=== PATIENT | female | born 1940 | race Caucasian/White ===

== ENCOUNTER → 2017-05-13 | Outpatient (CLI) | payer MEDICARE, SELFPAY ==
[~2017-05-13] MED LIST: ALBU90OI61 INH; AMLO5 PO; ASPI81CH PO; ASPI81EC PO; ATOR10 PO; Acetaminophen-1 EAC1 PO; Amaryl1 MG PO; BUDE6HFA; Bactrim 400-801 EACH PO; Bisoprolol Fumar5 MG PO; CETI5 PO; CIPRO500 MG PO; CLIN150; Celexa10 MG PO; D-3 PO; DEXL60CA3 PO; EZET10-40 PO; FISH1000 PO; Flagyl500 MG PO; GEMF600 PO; HYDACE5 PO; HYDMOR3S PR; LEVFLO500 PO; LEVSOD100 PO; LOSARTAN POTAS100 MG PO; MECL12.5 PO; METF500 PO; METO2.5 PO; MONDOXYNE NL100 MG PO; NEBI5 PO; NITR.4SL SL; NYST237S MT; PROM25S PR; Percocet 5-3251 EACH PO; Pyridium200 MG PO; RANI150 PO; ROSU5 PO; RXPHEN200 PO; SIMV10 PO; SUCR1 PO; Synthroid25 MCG PO; TYLECOD3 PO; UBID100 PO; ULTRA-LIGHT RO1 EACH MC; VALS80 PO; Vibramycin100 MG PO; Zantac150 MG PO; Zofran4 MG PO
== END ==
LOC: LAB SHORT 08:44
DX: N39.0 Urinary tract infection, site not specified (principal)
CPT/HCPCS: 87077; 87086; 87186

== ENCOUNTER 2017-05-19 09:22 | Emergency (ER) | payer MEDICARE, SELFPAY ==
[~2017-05-19] VITALS: Ht 172.7 cm; Wt 76.7 kg
[~2017-05-19 09:22] MED LIST changes: -ASPI81CH PO; -ATOR10 PO; -Acetaminophen-1 EAC1 PO; -Bisoprolol Fumar5 MG PO; -CLIN150; -MECL12.5 PO; -MONDOXYNE NL100 MG PO; -NYST237S MT; -SUCR1 PO; -TYLECOD3 PO; -Vibramycin100 MG PO
[2017-05-19] MEDS ORDERED: ASPI81CH PO (09:44)
[2017-05-19] MEDS ORDERED: Bisoprolol Fumar5 MG PO (09:45)
[2017-05-19] MEDS ORDERED: CLIN150 (09:45)
[2017-05-19] MEDS ORDERED: NYST237S MT ×2 (10:17→10:20)
[2017-10-04] MEDS ORDERED: ATOR10 PO (09:09)
[2018-01-20] MEDS ORDERED: MONDOXYNE NL100 MG PO (13:55)
[2018-01-20] MEDS ORDERED: TYLECOD3 PO ×2 (15:32→16:37)
[2018-02-26] MEDS ORDERED: MECL12.5 PO (14:09)
[2018-02-26] MEDS ORDERED: SUCR1 PO (14:09)
== END 2017-05-19 10:23 | disposition home or self-care (01) ==
LOC: ER 09:22
DX: B37.0 Candidal stomatitis (principal); Z88.0 Allergy status to penicillin; Z88.1 Allergy status to other antibiotic agents; Z88.8 Allergy status to other drugs, medicaments and biological substances; Z79.899 Other long term (current) drug therapy; Z79.82 Long term (current) use of aspirin; Z79.2 Long term (current) use of antibiotics; I10 Essential (primary) hypertension; E03.9 Hypothyroidism, unspecified; E78.00 Pure hypercholesterolemia, unspecified
CPT/HCPCS: 99282

== ENCOUNTER → 2017-08-24 | Outpatient (CLI) | payer MEDICARE ==
[~2017-08-24] MED LIST changes: +ASPI81CH PO; +Bisoprolol Fumar5 MG PO; +CLIN150; +LEVSOD25 PO; +NYST237S MT; +RANI150; -Synthroid25 MCG PO; -Zantac150 MG PO
== END | disposition home or self-care (01) ==
LOC: LAB SHORT 14:18 → LAB EV 14:18
DX: N39.0 Urinary tract infection, site not specified (principal)
CPT/HCPCS: 87086

== ENCOUNTER 2017-10-04 06:09 | Day surgery (SDC) | payer MEDICARE, SELFPAY ==
[~2017-10-04] VITALS: Ht 198.1 cm; Wt 80.0 kg
[2017-10-04] MEDS ORDERED: ATOR20 PO (09:09)
== END 2017-10-04 12:30 | disposition home or self-care (01) ==
LOC: MHTC 06:09
PROC: 4A033BC Measurement of Arterial Pressure, Coronary, Percutaneous Approach (ICD-10-PCS; principal; 2017-10-04)
PROC: B2111ZZ Fluoroscopy of Multiple Coronary Arteries using Low Osmolar Contrast (ICD-10-PCS; principal; 2017-10-04)
DX: I25.119 Atherosclerotic heart disease of native coronary artery with unspecified angina pectoris (principal); E78.00 Pure hypercholesterolemia, unspecified; I10 Essential (primary) hypertension; E11.9 Type 2 diabetes mellitus without complications; I44.7 Left bundle-branch block, unspecified; K21.9 Gastro-esophageal reflux disease without esophagitis; M75.101 Unspecified rotator cuff tear or rupture of right shoulder, not specified as traumatic; Z88.0 Allergy status to penicillin; Z88.8 Allergy status to other drugs, medicaments and biological substances; Z88.5 Allergy status to narcotic agent; Z88.1 Allergy status to other antibiotic agents; Z79.82 Long term (current) use of aspirin; Z79.899 Other long term (current) drug therapy
CPT/HCPCS: 93454; 93571; 99152; 99153; C1769; C1894; J1644; J2250; J3010; J7030; Q9967

== ENCOUNTER 2017-10-08 22:31 | Emergency (ER) | payer MEDICARE, SELFPAY ==
[~2017-10-08] VITALS: Ht 172.7 cm; Wt 80.3 kg
[~2017-10-08 22:31] MED LIST changes: +ATOR20 PO
[2017-10-08] MEDS ORDERED: Acetaminophen-1 EAC1 PO (23:02)
[2017-10-09 00:26] LABS: BASOPHILS ABSOLUTE AUTO 0.02 K/mm3 (0.00-0.23); BASOPHILS PERCENT AUTO 0 % (0-2); EOSINOPHILS PERCENT AUTO 1 % (0-6); Hematocrit 36.8 % (33.0-51.0); IMMATURE GRAN ABSOLUTE AUTO 0.02 K/mm3 (0.00-0.10); IMMATURE GRAN PERCENT AUTO 0 % (0-1); LYMPHOCYTES ABSOLUTE AUTO 1.85 K/mm3 (0.84-5.20); LYMPHOCYTES PERCENT AUTO 27 % (21-46); MONOCYTES ABSOLUTE AUTO 0.73 K/mm3 (0.16-1.47); MONOCYTES PERCENT AUTO 11 % (4-13); Mean Corpuscular HGB Conc 32.6 g/dL (31.5-36.5); Mean Corpuscular Volume 86 fL (80-100); Mean Platelet Volume 10.2 fL (9.1-12.4); NEUTROPHILS PERCENT AUTO 61 % (41-73); Platelet Count 212 K/mm3 (150-400); RDW Coefficient Variation 14.2 % (11.7-14.2); RDW Standard Deviation 44.6 fL (35.1-46.3); Red Blood Cell Count 4.28 M/mm3 (3.80-5.20); White Blood Cell Count 6.92 K/mm3 (4.00-11.30)
[2017-10-09 00:40] LABS: Anion Gap 6 mmol/L (6-16); Blood Urea Nitrogen 15 mg/dL (8-24); Bun/Creatinine Ratio 19.9 (12.0-20.0); CO2, Blood 32 mmol/L (21-32); Calcium, Blood 9.6 mg/dL (8.5-10.1); Chloride, Blood 101 mmol/L (98-108); Creatinine, Blood 0.75 mg/dL (0.40-1.00); Glomerular Filtration Rate >60 (60-); Glucose, Blood 105 mg/dL (70-99); Potassium, Blood 4.2 mmol/L (3.5-5.5); Sodium, Blood 139 mmol/L (136-145)
[2017-10-09] MEDS ORDERED: Vibramycin100 MG PO (01:28)
== END 2017-10-09 02:10 | disposition home or self-care (01) ==
LOC: ER 22:31
PROVIDERS: Emergency Medicine
DX: T81.4XXA Infection following a procedure, initial encounter (principal); L03.113 Cellulitis of right upper limb; T81.72XA Complication of vein following a procedure, not elsewhere classified, initial encounter; I80.8 Phlebitis and thrombophlebitis of other sites; I10 Essential (primary) hypertension; E03.9 Hypothyroidism, unspecified; Z88.0 Allergy status to penicillin; Z88.1 Allergy status to other antibiotic agents; Z88.8 Allergy status to other drugs, medicaments and biological substances; Z88.5 Allergy status to narcotic agent; Z79.899 Other long term (current) drug therapy; Z79.82 Long term (current) use of aspirin
CPT/HCPCS: 36415; 80048; 85025; 93931; 99284

== ENCOUNTER 2018-01-11 04:34 | Emergency (ER) | payer MEDICARE, SELFPAY ==
[~2018-01-11] VITALS: Ht 167.6 cm; Wt 82.1 kg
[~2018-01-11 04:34] MED LIST changes: +ATOR10 PO; -ATOR20 PO; +Acetaminophen-1 EAC1 PO; -LEVSOD25 PO; -RANI150; +Synthroid25 MCG PO; +Vibramycin100 MG PO; +Zantac150 MG PO
[2018-01-11 05:46] LABS: BASOPHILS ABSOLUTE AUTO 0.02 K/mm3 (0.00-0.23); BASOPHILS PERCENT AUTO 0 % (0-2); EOSINOPHILS ABSOLUTE AUTO 0.07 K/mm3 (0.00-0.68); EOSINOPHILS PERCENT AUTO 1 % (0-6); Hematocrit 40.5 % (33.0-51.0); Hemoglobin 12.9 g/dL (11.5-16.0); IMMATURE GRAN ABSOLUTE AUTO 0.01 K/mm3 (0.00-0.10); IMMATURE GRAN PERCENT AUTO 0 % (0-1); LYMPHOCYTES ABSOLUTE AUTO 1.77 K/mm3 (0.84-5.20); LYMPHOCYTES PERCENT AUTO 28 % (21-46); MONOCYTES ABSOLUTE AUTO 0.49 K/mm3 (0.16-1.47); MONOCYTES PERCENT AUTO 8 % (4-13); Mean Corpuscular HGB 27.9 pg (26.0-34.0); Mean Corpuscular HGB Conc 31.9 g/dL (31.5-36.5); Mean Corpuscular Volume 88 fL (80-100); Mean Platelet Volume 10.1 fL (9.1-12.4); NEUTROPHILS PERCENT AUTO 63 % (41-73); Platelet Count 178 K/mm3 (150-400); RDW Coefficient Variation 13.4 % (11.7-14.2); RDW Standard Deviation 43.3 fL (35.1-46.3); Red Blood Cell Count 4.63 M/mm3 (3.80-5.20); White Blood Cell Count 6.36 K/mm3 (4.00-11.30)
[2018-01-11 06:05] LABS: Alanine Aminotransfer (ALT/SGP 24 U/L (12-78); Albumin, Blood 3.6 g/dL (3.4-5.0); Albumin/Globulin Ratio 0.9 (0.8-1.8); Alk Phos 110 U/L (50-136); Anion Gap 7 mmol/L (6-16); Aspartate Aminotrans (AST/SGOT 19 U/L (12-37); Bilirubin, Total 0.7 mg/dL (0.1-1.0); Blood Urea Nitrogen 20 mg/dL (8-24); Bun/Creatinine Ratio 25.9 (12.0-20.0); CO2, Blood 28 mmol/L (21-32); Calcium, Blood 8.9 mg/dL (8.5-10.1); Chloride, Blood 106 mmol/L (98-108); Creatinine, Blood 0.77 mg/dL (0.40-1.00); Globulin, Blood 4.1 g/dL (2.2-4.0); Glomerular Filtration Rate >60 (60-); Glucose, Blood 124 mg/dL (70-99); Sodium, Blood 141 mmol/L (136-145); Total Protein, Blood 7.7 g/dL (6.4-8.2); Troponin I <0.015 ng/mL (0.000-0.040)
[2018-01-11] MEDS ORDERED: TYLECOD3 PO (06:51)
== END 2018-01-11 06:55 | disposition home or self-care (01) ==
LOC: ER 04:34
PROVIDERS: Emergency Medicine
DX: S60.021A Contusion of right index finger without damage to nail, initial encounter (principal); E11.9 Type 2 diabetes mellitus without complications; E03.9 Hypothyroidism, unspecified; E78.00 Pure hypercholesterolemia, unspecified; I10 Essential (primary) hypertension; Z88.0 Allergy status to penicillin; Z88.1 Allergy status to other antibiotic agents; Z88.8 Allergy status to other drugs, medicaments and biological substances; Z88.5 Allergy status to narcotic agent; Z79.899 Other long term (current) drug therapy; Z79.82 Long term (current) use of aspirin; X58.XXXA Exposure to other specified factors, initial encounter
CPT/HCPCS: 36415; 80053; 84484; 85025; 93005; 93010; 93922; 96374; 96375; 99284-25; J1170; J2405

== ENCOUNTER 2018-01-11 19:00 | Emergency (ER) | payer MEDICARE, SELFPAY ==
[~2018-01-11] VITALS: Ht 167.6 cm; Wt 82.1 kg
[~2018-01-11 19:00] MED LIST changes: +TYLECOD3 PO
== END 2018-01-11 21:18 | disposition home or self-care (01) ==
LOC: ER 19:00
DX: S60.121A Contusion of right index finger with damage to nail, initial encounter (principal); I10 Essential (primary) hypertension; E03.9 Hypothyroidism, unspecified; Z88.0 Allergy status to penicillin; Z88.1 Allergy status to other antibiotic agents; Z88.8 Allergy status to other drugs, medicaments and biological substances; Z88.5 Allergy status to narcotic agent; Z79.899 Other long term (current) drug therapy; Z79.82 Long term (current) use of aspirin; X58.XXXA Exposure to other specified factors, initial encounter
CPT/HCPCS: 11740; 73140; 99283-25

== ENCOUNTER 2018-01-15 11:36 | Emergency (ER) | payer MEDICARE, SELFPAY ==
[~2018-01-15] VITALS: Ht 167.6 cm; Wt 83.5 kg
== END 2018-01-15 11:58 | disposition home or self-care (01) ==
LOC: ER 11:36
DX: L53.9 Erythematous condition, unspecified (principal); E11.9 Type 2 diabetes mellitus without complications; E03.9 Hypothyroidism, unspecified; E78.00 Pure hypercholesterolemia, unspecified; I10 Essential (primary) hypertension; Z88.0 Allergy status to penicillin; Z88.1 Allergy status to other antibiotic agents; Z88.8 Allergy status to other drugs, medicaments and biological substances; Z79.899 Other long term (current) drug therapy; Z79.82 Long term (current) use of aspirin
CPT/HCPCS: 99282

== ENCOUNTER → 2018-04-26 | Outpatient (CLI) | payer MEDICARE ==
[~2018-04-26] MED LIST changes: +MECL12.5 PO; +MONDOXYNE NL100 MG PO; +SUCR1 PO
[2018-04-26 14:58] LABS: Source, Urine Clean Catch
[2018-04-26 15:06] LABS: Appearance, Urine Clear (Clear); Bilirubin, Urine Neg (Neg); Blood, Urine Neg (Neg); Color, Urine Yellow (P-Yellow); Glucose Qualitative, Urine Neg (Normal); Ketones, Urine Neg (Neg); Leukocyte Esterase, Urine 2+ (Neg); Nitrite, Urine Neg (Neg); Protein, Urine Neg (Neg); Urobilinogen, Urine NORM (Normal)
[2018-04-26 15:18] LABS: Bacteria Not Seen /hpf; Red Blood Cells, Urine Not Seen /hpf (0-2); Squamous Epithelial Cells Not Seen /hpf (Few)
== END | disposition home or self-care (01) ==
LOC: LAB EV 14:55 → LAB SHORT 14:55
PROVIDERS: Nurse Practitioner
DX: N39.0 Urinary tract infection, site not specified (principal)
CPT/HCPCS: 81001; 87077; 87086; 87186

== ENCOUNTER → 2018-05-05 | Outpatient (CLI) | payer MEDICARE ==
[2018-05-05 08:19] LABS: Bacteria Mod /hpf; Red Blood Cells, Urine TNTC /hpf (0-2); Squamous Epithelial Cells Few /hpf (Few); White Blood Cells, Urine 50-100 /hpf (0-5)
== END ==
LOC: LAB SHORT 07:51 → LAB EV 07:51
PROVIDERS: General Practice
DX: N39.0 Urinary tract infection, site not specified (principal)
CPT/HCPCS: 81015; 87086

== ENCOUNTER 2018-06-30 18:41 | Emergency (ER) | payer MEDICARE, OTHER ==
[~2018-06-30] VITALS: Ht 160 cm; Wt 88.5 kg
[2018-06-30 19:10] LABS: BASOPHILS ABSOLUTE AUTO 0.02 K/mm3 (0.00-0.23); BASOPHILS PERCENT AUTO 0 % (0-2); EOSINOPHILS ABSOLUTE AUTO 0.06 K/mm3 (0.00-0.68); EOSINOPHILS PERCENT AUTO 1 % (0-6); Hematocrit 37.3 % (33.0-51.0); IMMATURE GRAN ABSOLUTE AUTO 0.01 K/mm3 (0.00-0.10); IMMATURE GRAN PERCENT AUTO 0 % (0-1); LYMPHOCYTES ABSOLUTE AUTO 2.45 K/mm3 (0.84-5.20); LYMPHOCYTES PERCENT AUTO 41 % (21-46); MONOCYTES ABSOLUTE AUTO 0.53 K/mm3 (0.16-1.47); MONOCYTES PERCENT AUTO 9 % (4-13); Mean Corpuscular HGB 27.1 pg (26.0-34.0); Mean Corpuscular HGB Conc 32.2 g/dL (31.5-36.5); Mean Corpuscular Volume 84 fL (80-100); Mean Platelet Volume 10.7 fL (9.1-12.4); NEUTROPHILS ABSOLUTE AUTO 2.86 K/mm3 (1.96-9.15); NEUTROPHILS PERCENT AUTO 48 % (41-73); Platelet Count 217 K/mm3 (150-400); RDW Coefficient Variation 14.4 % (11.7-14.2); RDW Standard Deviation 44.2 fL (35.1-46.3); Red Blood Cell Count 4.43 M/mm3 (3.80-5.20); White Blood Cell Count 5.93 K/mm3 (4.00-11.30)
[2018-06-30] MEDS ORDERED: ATOR20 PO ×2 (19:40)
[2018-06-30] MEDS ORDERED: Synthroid25 MCG PO (19:41)
[2018-06-30] MEDS ORDERED: NITR.4SL SL (19:43)
[2018-06-30] MEDS ORDERED: CLOP75 PO (19:43)
[2018-06-30] MEDS ORDERED: LOSA25 PO (19:44)
[2018-06-30] MEDS ORDERED: Zantac150 MG PO (19:45)
[2018-06-30] MEDS ORDERED: OMEPRAZOLE MAGN20 MG PO (19:46)
[2018-06-30] MEDS ORDERED: [UNRECOGNIZED DRUG - OTHER] (19:48)
[2018-06-30 19:58] LABS: Troponin I <0.015 ng/mL (0.000-0.040)
[2018-06-30 19:59] LABS: Alanine Aminotransfer (ALT/SGP 22 U/L (12-78); Albumin, Blood 3.6 g/dL (3.4-5.0); Albumin/Globulin Ratio 0.9 (0.8-1.8); Alk Phos 114 U/L (50-136); Anion Gap 9 mmol/L (6-16); Aspartate Aminotrans (AST/SGOT 19 U/L (12-37); Bilirubin, Total 0.2 mg/dL (0.1-1.0); Blood Urea Nitrogen 24 mg/dL (8-24); Bun/Creatinine Ratio 31.9 (12.0-20.0); CO2, Blood 24 mmol/L (21-32); Calcium, Blood 9.1 mg/dL (8.5-10.1); Chloride, Blood 104 mmol/L (98-108); Creatinine, Blood 0.75 mg/dL (0.40-1.00); Globulin, Blood 3.9 g/dL (2.2-4.0); Glomerular Filtration Rate >60 (60-); Glucose, Blood 238 mg/dL (70-99); Potassium, Blood 3.7 mmol/L (3.5-5.5); Sodium, Blood 137 mmol/L (136-145); Total Protein, Blood 7.5 g/dL (6.4-8.2)
[2018-06-30] MEDS ORDERED: Ativan0.5 MG SL (20:34)
== END 2018-06-30 20:50 | disposition home or self-care (01) ==
LOC: ER 18:41
PROVIDERS: Physician Assistant
DX: I35.0 Nonrheumatic aortic (valve) stenosis (principal); I42.8 Other cardiomyopathies; F43.9 Reaction to severe stress, unspecified; Z88.0 Allergy status to penicillin; Z88.1 Allergy status to other antibiotic agents; Z88.8 Allergy status to other drugs, medicaments and biological substances; Z79.899 Other long term (current) drug therapy; Z79.82 Long term (current) use of aspirin; E11.9 Type 2 diabetes mellitus without complications; E03.9 Hypothyroidism, unspecified; I10 Essential (primary) hypertension
CPT/HCPCS: 36415; 71046; 80053; 83880; 84484; 85025; 93005; 93010; 99285-25

== ENCOUNTER → 2018-12-04 | Outpatient (CLI) | payer MEDICARE, OTHER ==
[~2018-12-04] MED LIST changes: +ATOR20 PO; +Ativan0.5 MG SL; +CLOP75 PO; +LOSA25 PO; +OMEPRAZOLE MAGN20 MG PO; +[UNRECOGNIZED DRUG - OTHER]
[2018-12-04 09:39] LABS: Source, Urine Clean Catch
[2018-12-04 10:27] LABS: Appearance, Urine Clear (Clear); Bacteria Few /hpf; Bilirubin, Urine 1+ (Neg); Blood, Urine 1+ (Neg); Color, Urine Yellow (P-Yellow); Glucose Qualitative, Urine Neg (Normal); Ketones, Urine Neg (Neg); Leukocyte Esterase, Urine Neg (Neg); Nitrite, Urine Pos (Neg); Protein, Urine 1+ (Neg); Red Blood Cells, Urine 0-2 /hpf (0-2); Squamous Epithelial Cells Rare /hpf (Few); Urobilinogen, Urine 1+ (Normal); White Blood Cells, Urine 0-2 /hpf (0-5)
== END | disposition home or self-care (01) ==
LOC: LAB EV 09:32
PROVIDERS: Nurse Practitioner
DX: R35.0 Frequency of micturition (principal)
CPT/HCPCS: 81001; 87086

== ENCOUNTER 2019-05-25 02:53 | Emergency (ER) | payer MEDICARE ==
[~2019-05-25] VITALS: Ht 167.6 cm; Wt 80.7 kg
[2019-05-25 03:40] LABS: Source, Urine Voided
[2019-05-25 03:42] LABS: Bilirubin, Urine Neg (Neg); Blood, Urine 3+ (Neg); Glucose Qualitative, Urine Neg (Neg); Ketones, Urine Neg (Neg); Leukocyte Esterase, Urine 3+ (Neg); Nitrite, Urine Pos (Neg); Protein, Urine 2+ (Neg); Specific Gravity, Urine 1.015 (1.003-1.022); Urobilinogen, Urine NORM (Normal)
[2019-05-25 03:43] LABS: Appearance, Urine Hazy (Clear); Color, Urine Yellow (P-Yellow)
[2019-05-25 03:50] LABS: Bacteria Few /hpf; Red Blood Cells, Urine 0-2 /hpf (0-2); Squamous Epithelial Cells Rare /hpf (Few); White Blood Cells, Urine TNTC /hpf (0-5)
[2019-05-25] MEDS ORDERED: Bactrim Ds Tab1 EACH PO (04:05)
== END 2019-05-25 04:16 | disposition home or self-care (01) ==
LOC: ER 02:53
PROVIDERS: Emergency Medicine
DX: N39.0 Urinary tract infection, site not specified (principal); I10 Essential (primary) hypertension; E11.9 Type 2 diabetes mellitus without complications; E03.9 Hypothyroidism, unspecified; E78.00 Pure hypercholesterolemia, unspecified; Z88.0 Allergy status to penicillin; Z88.1 Allergy status to other antibiotic agents; Z88.8 Allergy status to other drugs, medicaments and biological substances; Z88.5 Allergy status to narcotic agent; Z79.899 Other long term (current) drug therapy; Z79.82 Long term (current) use of aspirin; Z79.01 Long term (current) use of anticoagulants
CPT/HCPCS: 81001; 87077; 87086; 87186; 99283; A9270-GY

== ENCOUNTER 2019-09-07 13:42 | Emergency (ER) | payer MEDICARE ==
[~2019-09-07] VITALS: Ht 167.6 cm; Wt 83.9 kg
[~2019-09-07 13:42] MED LIST changes: +Bactrim Ds Tab1 EACH PO
[2019-09-07 14:18] LABS: Source, Urine Clean Catch
[2019-09-07 14:23] LABS: Bilirubin, Urine Neg (Neg); Blood, Urine 5+ (Neg); Glucose Qualitative, Urine Neg (Neg); Ketones, Urine Neg (Neg); Leukocyte Esterase, Urine 3+ (Neg); Nitrite, Urine Neg (Neg); Protein, Urine 3+ (Neg); Urobilinogen, Urine NORM (Normal)
[2019-09-07 14:32] LABS: Appearance, Urine Cloudy (Clear); Color, Urine Yellow (P-Yellow)
[2019-09-07 14:33] LABS: Bacteria Few /hpf; Red Blood Cells, Urine TNTC /hpf (0-2); Squamous Epithelial Cells Few /hpf (Few); White Blood Cells, Urine TNTC /hpf (0-5)
[2019-09-07] MEDS ORDERED: NYST100000 PO (15:18)
[2019-09-07] MEDS ORDERED: SULTRIDS PO (15:18)
[2019-09-07] MEDS ORDERED: PHENA200 PO (15:18)
== END 2019-09-07 15:32 | disposition home or self-care (01) ==
LOC: ER 13:42
PROVIDERS: Emergency Medicine
DX: N39.0 Urinary tract infection, site not specified (principal); Z88.0 Allergy status to penicillin; Z88.1 Allergy status to other antibiotic agents; Z88.5 Allergy status to narcotic agent; Z88.8 Allergy status to other drugs, medicaments and biological substances; Z79.82 Long term (current) use of aspirin; Z79.899 Other long term (current) drug therapy
CPT/HCPCS: 81001; 87077; 87086; 87186; 99283; A9270-GY

== ENCOUNTER 2020-02-18 08:00 | Emergency (ER) | payer MEDICARE, OTHER ==
[~2020-02-18] VITALS: Ht 170.2 cm; Wt 89.8 kg
[~2020-02-18 08:00] MED LIST changes: +NYST100000 PO; +NYSTATIN100000 UN2 PO; +PHENA200 PO; +SULTRIDS PO
== END 2020-02-18 10:17 | disposition home or self-care (01) ==
LOC: ER 08:00
DX: J30.9 Allergic rhinitis, unspecified (principal); I10 Essential (primary) hypertension; E11.9 Type 2 diabetes mellitus without complications; E03.9 Hypothyroidism, unspecified; E78.00 Pure hypercholesterolemia, unspecified; Z79.02 Long term (current) use of antithrombotics/antiplatelets; Z79.82 Long term (current) use of aspirin; Z79.899 Other long term (current) drug therapy
CPT/HCPCS: 71046; 99283-25

== ENCOUNTER → 2020-03-11 | Outpatient (CLI) | payer MEDICARE ==
[~2020-03-11] MED LIST changes: +BISOPROLOL-HCT1 EAC2 PO; +Cipro500 MG PO; +ESTRADIOL42.5 GM UD; +GABA300 PO; -LOSA25 PO; +LOSA50 PO
== END | disposition home or self-care (01) ==
LOC: LAB SHORT 14:29 → LAB EV 14:29
DX: N39.0 Urinary tract infection, site not specified (principal)
CPT/HCPCS: 87077; 87086; 87186

== ENCOUNTER 2020-04-11 21:22 | Emergency (ER) | payer MEDICARE, SELFPAY ==
[~2020-04-11] VITALS: Ht 167.6 cm; Wt 88.0 kg
[~2020-04-11 21:22] MED LIST changes: -BISOPROLOL-HCT1 EAC2 PO; -Cipro500 MG PO; -ESTRADIOL42.5 GM UD; -GABA300 PO
[2020-04-11] MEDS ORDERED: LOSA50 PO (21:32)
[2020-04-11] MEDS ORDERED: BISOPROLOL-HCT1 EAC2 PO (21:34)
[2020-04-11] MEDS ORDERED: GABA300 PO (21:35)
[2020-04-11] MEDS ORDERED: ESTRADIOL42.5 GM UD (21:35)
[2020-04-11 22:05] LABS: Source, Urine Clean Catch
[2020-04-11 22:09] LABS: BASOPHILS ABSOLUTE AUTO 0.03 K/mm3 (0.00-0.23); BASOPHILS PERCENT AUTO 0 % (0-2); EOSINOPHILS ABSOLUTE AUTO 0.02 K/mm3 (0.00-0.68); EOSINOPHILS PERCENT AUTO 0 % (0-6); Hematocrit 40.3 % (33.0-51.0); Hemoglobin 12.9 g/dL (11.5-16.0); IMMATURE GRAN ABSOLUTE AUTO 0.03 K/mm3 (0.00-0.10); IMMATURE GRAN PERCENT AUTO 0 % (0-1); LYMPHOCYTES ABSOLUTE AUTO 1.95 K/mm3 (0.84-5.20); LYMPHOCYTES PERCENT AUTO 25 % (21-46); MONOCYTES ABSOLUTE AUTO 0.55 K/mm3 (0.16-1.47); MONOCYTES PERCENT AUTO 7 % (4-13); Mean Corpuscular HGB 27.9 pg (26.0-34.0); Mean Corpuscular Volume 87 fL (80-100); Mean Platelet Volume 10.3 fL (9.1-12.4); NEUTROPHILS ABSOLUTE AUTO 5.16 K/mm3 (1.96-9.15); NEUTROPHILS PERCENT AUTO 67 % (41-73); Platelet Count 190 K/mm3 (150-400); RDW Coefficient Variation 14.3 % (11.7-14.2); RDW Standard Deviation 45.2 fL (35.1-46.3); Red Blood Cell Count 4.63 M/mm3 (3.80-5.20); White Blood Cell Count 7.74 K/mm3 (4.00-11.30)
[2020-04-11 22:12] LABS: Bilirubin, Urine Neg (Neg); Blood, Urine 1+ (Neg); Glucose Qualitative, Urine 3+ (Neg); Ketones, Urine Neg (Neg); Leukocyte Esterase, Urine 3+ (Neg); Nitrite, Urine Neg (Neg); Protein, Urine 2+ (Neg); Urobilinogen, Urine NORM (Normal)
[2020-04-11 22:14] LABS: Appearance, Urine Clear (Clear); Color, Urine Yellow (P-Yellow)
[2020-04-11 22:18] LABS: Red Blood Cells, Urine 0-2 /hpf (0-2); Squamous Epithelial Cells Few /hpf (Few); White Blood Cells, Urine 25-50 /hpf (0-5)
[2020-04-11 22:19] LABS: Bacteria Mod /hpf
[2020-04-11 22:21] LABS: Alanine Aminotransfer (ALT/SGP 45 U/L (12-78); Albumin, Blood 3.6 g/dL (3.4-5.0); Albumin/Globulin Ratio 0.9 (0.8-1.8); Alk Phos 108 U/L (50-136); Anion Gap 5 mmol/L (6-16); Aspartate Aminotrans (AST/SGOT 36 U/L (12-37); Bilirubin, Total 0.2 mg/dL (0.1-1.0); Blood Urea Nitrogen 28 mg/dL (8-24); Bun/Creatinine Ratio 30.3 (12.0-20.0); CO2, Blood 27 mmol/L (21-32); Calcium, Blood 9.5 mg/dL (8.5-10.1); Chloride, Blood 107 mmol/L (98-108); Creatinine, Blood 0.92 mg/dL (0.40-1.00); Globulin, Blood 3.9 g/dL (2.2-4.0); Glomerular Filtration Rate >60 (60-); Glucose, Blood 256 mg/dL (70-99); Potassium, Blood 4.2 mmol/L (3.5-5.5); Sodium, Blood 139 mmol/L (136-145); Total Protein, Blood 7.5 g/dL (6.4-8.2)
[2020-04-12] MEDS ORDERED: Cipro500 MG PO (00:59)
== END 2020-04-12 01:00 | disposition home or self-care (01) ==
LOC: ER 21:22
PROVIDERS: Emergency Medicine
DX: N39.0 Urinary tract infection, site not specified (principal); E11.9 Type 2 diabetes mellitus without complications; E03.9 Hypothyroidism, unspecified; E78.00 Pure hypercholesterolemia, unspecified; I10 Essential (primary) hypertension; I25.10 Atherosclerotic heart disease of native coronary artery without angina pectoris; I25.2 Old myocardial infarction; Z79.82 Long term (current) use of aspirin; Z79.899 Other long term (current) drug therapy
CPT/HCPCS: 74176; 80053; 81001; 85025; 87077; 87086; 87186; 96374; 96375; 99284-25; J1170; J2405

== ENCOUNTER 2020-07-05 07:53 | Emergency (ER) | payer MEDICARE, SELFPAY ==
[~2020-07-05] VITALS: Ht 165.1 cm; Wt 89.8 kg
[~2020-07-05 07:53] MED LIST changes: +BISOPROLOL-HCT1 EAC2 PO; +Cipro500 MG PO; +ESTRADIOL42.5 GM UD; +GABA300 PO
[2020-07-05] MEDS ORDERED: HIPREX1 G1 PO (08:11)
[2020-07-05] MEDS ORDERED: CIPR500 PO (08:36)
[2020-07-05] MEDS ORDERED: PHENA200 PO (08:36)
[2020-07-05 08:43] LABS: Source, Urine Clean Catch
[2020-07-05 08:51] LABS: Bilirubin, Urine Neg (Neg); Blood, Urine 5+ (Neg); Glucose Qualitative, Urine Neg (Neg); Ketones, Urine Neg (Neg); Leukocyte Esterase, Urine 3+ (Neg); Nitrite, Urine Pos (Neg); Protein, Urine 3+ (Neg); Urobilinogen, Urine NORM (Normal); pH, Urine 6.5 (5.0-8.0)
[2020-07-05 09:16] LABS: Appearance, Urine Cloudy (Clear); Color, Urine Yellow (P-Yellow)
[2020-07-05 09:18] LABS: Bacteria Many /hpf; Red Blood Cells, Urine 25-50 /hpf (0-2); White Blood Cells, Urine TNTC /hpf (0-5)
[2020-07-05 09:19] LABS: Squamous Epithelial Cells Many /hpf (Few)
== END 2020-07-05 08:43 | disposition home or self-care (01) ==
LOC: ER 07:53
PROVIDERS: Emergency Medicine
DX: N39.0 Urinary tract infection, site not specified (principal); Z79.82 Long term (current) use of aspirin; Z79.02 Long term (current) use of antithrombotics/antiplatelets; Z79.899 Other long term (current) drug therapy
CPT/HCPCS: 81001; 87077; 87086; 87186; 99283; A9270

== ENCOUNTER 2021-02-17 07:13 | Day surgery (SDC) | payer MEDICARE ==
[~2021-02-17] VITALS: Ht 167.6 cm; Wt 80.8 kg
[~2021-02-17 07:13] MED LIST changes: +CIPR500 PO; +HIPREX1 G1 PO
== END 2021-02-17 09:30 | disposition home or self-care (01) ==
LOC: ORSCSDS 07:13 → ORD 08:30 → ORSCSDS 09:30
PROVIDERS: Surgery
PROC: 0DBM8ZX Excision of Descending Colon, Via Natural or Artificial Opening Endoscopic, Diagnostic (ICD-10-PCS; principal; 2021-02-17 08:30)
DX: Z12.11 Encounter for screening for malignant neoplasm of colon (principal); Z86.010 Personal history of colon polyps; D12.4 Benign neoplasm of descending colon; E11.9 Type 2 diabetes mellitus without complications; K21.9 Gastro-esophageal reflux disease without esophagitis; I10 Essential (primary) hypertension; E78.5 Hyperlipidemia, unspecified; I25.2 Old myocardial infarction; E03.9 Hypothyroidism, unspecified; Z79.82 Long term (current) use of aspirin; Z79.899 Other long term (current) drug therapy
CPT/HCPCS: 82947; 88305; J2704; J7120

== ENCOUNTER → 2021-05-27 | Outpatient (CLI) | payer MEDICARE ==
[2021-05-27 09:23] LABS: Alanine Aminotransfer (ALT/SGP 42 U/L (12-78); Albumin, Blood 3.8 g/dL (3.4-5.0); Alk Phos 124 U/L (50-136); Anion Gap 7 mmol/L (6-16); Aspartate Aminotrans (AST/SGOT 24 U/L (12-37); Bilirubin, Total 0.3 mg/dL (0.1-1.0); Blood Urea Nitrogen 19 mg/dL (8-24); Bun/Creatinine Ratio 24.3 (12.0-20.0); CO2, Blood 27 mmol/L (21-32); Calcium, Blood 9.5 mg/dL (8.5-10.1); Chloride, Blood 102 mmol/L (98-108); Creatinine, Blood 0.78 mg/dL (0.40-1.00); Globulin, Blood 3.7 g/dL (2.2-4.0); Glomerular Filtration Rate >60 (60-); Glucose, Blood 168 mg/dL (70-99); Potassium, Blood 4.2 mmol/L (3.5-5.5); Sodium, Blood 136 mmol/L (136-145); Total Protein, Blood 7.5 g/dL (6.4-8.2); Uric Acid, Blood 5.1 mg/dL (2.6-6.0)
[2021-05-27 09:39] LABS: BASOPHILS ABSOLUTE AUTO 0.02 K/mm3 (0.00-0.23); BASOPHILS PERCENT AUTO 0 % (0-2); EOSINOPHILS ABSOLUTE AUTO 0.05 K/mm3 (0.00-0.68); EOSINOPHILS PERCENT AUTO 1 % (0-6); Hemoglobin 13.7 g/dL (11.5-16.0); IMMATURE GRAN ABSOLUTE AUTO 0.02 K/mm3 (0.00-0.10); IMMATURE GRAN PERCENT AUTO 0 % (0-1); LYMPHOCYTES ABSOLUTE AUTO 1.66 K/mm3 (0.84-5.20); LYMPHOCYTES PERCENT AUTO 28 % (21-46); MONOCYTES ABSOLUTE AUTO 0.37 K/mm3 (0.16-1.47); MONOCYTES PERCENT AUTO 6 % (4-13); Mean Corpuscular HGB 27.2 pg (26.0-34.0); Mean Corpuscular HGB Conc 32.6 g/dL (31.5-36.5); Mean Corpuscular Volume 83 fL (80-100); Mean Platelet Volume 10.6 fL (9.1-12.4); NEUTROPHILS ABSOLUTE AUTO 3.85 K/mm3 (1.96-9.15); NEUTROPHILS PERCENT AUTO 65 % (41-73); Platelet Count 203 K/mm3 (150-400); RDW Coefficient Variation 15.7 % (11.7-14.2); RDW Standard Deviation 47.7 fL (35.1-46.3); Red Blood Cell Count 5.04 M/mm3 (3.80-5.20); White Blood Cell Count 5.97 K/mm3 (4.00-11.30)
== END | disposition home or self-care (01) ==
LOC: LAB SHORT 09:01
PROVIDERS: Nurse Practitioner Family
DX: S63.649A Sprain of metacarpophalangeal joint of unspecified thumb, initial encounter (principal); M13.841 Other specified arthritis, right hand
CPT/HCPCS: 80053; 84550; 85025; 85651; 86140

== ENCOUNTER 2021-08-21 06:51 | Day surgery (SDC) | payer MEDICARE ==
[~2021-08-21] VITALS: Ht 167.6 cm; Wt 82.9 kg
== END 2021-08-21 09:09 | disposition home or self-care (01) ==
LOC: ORSCSDS 06:51
PROVIDERS: Internal Medicine Gastroenterology
PROC: 0DB68ZX Excision of Stomach, Via Natural or Artificial Opening Endoscopic, Diagnostic (ICD-10-PCS; principal; 2021-08-21 08:00)
DX: R10.13 Epigastric pain (principal); K31.7 Polyp of stomach and duodenum; K44.9 Diaphragmatic hernia without obstruction or gangrene; K21.9 Gastro-esophageal reflux disease without esophagitis; E11.9 Type 2 diabetes mellitus without complications; E03.9 Hypothyroidism, unspecified; I10 Essential (primary) hypertension; I25.10 Atherosclerotic heart disease of native coronary artery without angina pectoris; Z79.01 Long term (current) use of anticoagulants; Z79.82 Long term (current) use of aspirin; Z79.84 Long term (current) use of oral hypoglycemic drugs
CPT/HCPCS: 88305; 88342; J2704; J7120

== ENCOUNTER 2021-12-19 13:10 | Inpatient (IN) | payer OTHER, MEDICARE ==
[~2021-12-19] VITALS: Ht 170.2 cm; Wt 78.1 kg
[2021-12-19] MEDS ORDERED: BISOPROLOL-HCT1 EACH PO (14:02)
[2021-12-19] MEDS ORDERED: CLOP75 PO (14:02)
[2021-12-19] MEDS ORDERED: LEVSOD25 PO (14:03)
[2021-12-19] MEDS ORDERED: METF500 PO (14:03)
[2021-12-19] MEDS ORDERED: OZEMPIC0.25 MG/0. SQ (14:04)
[2021-12-19 16:10] LABS: BASOPHILS ABSOLUTE AUTO 0.01 K/mm3 (0.00-0.23); BASOPHILS PERCENT AUTO 0 % (0-2); EOSINOPHILS ABSOLUTE AUTO 0.01 K/mm3 (0.00-0.68); EOSINOPHILS PERCENT AUTO 0 % (0-6); Hematocrit 37.4 % (33.0-51.0); Hemoglobin 12.7 g/dL (11.5-16.0); IMMATURE GRAN ABSOLUTE AUTO 0.04 K/mm3 (0.00-0.10); IMMATURE GRAN PERCENT AUTO 0 % (0-1); LYMPHOCYTES ABSOLUTE AUTO 1.37 K/mm3 (0.84-5.20); LYMPHOCYTES PERCENT AUTO 12 % (21-46); MONOCYTES ABSOLUTE AUTO 0.55 K/mm3 (0.16-1.47); MONOCYTES PERCENT AUTO 5 % (4-13); Mean Corpuscular HGB 28.8 pg (26.0-34.0); Mean Corpuscular Volume 85 fL (80-100); Mean Platelet Volume 9.7 fL (9.1-12.4); NEUTROPHILS ABSOLUTE AUTO 9.59 K/mm3 (1.96-9.15); NEUTROPHILS PERCENT AUTO 83 % (41-73); Platelet Count 205 K/mm3 (150-400); RDW Coefficient Variation 13.6 % (11.7-14.2); RDW Standard Deviation 42.5 fL (35.1-46.3); Red Blood Cell Count 4.41 M/mm3 (3.80-5.20); White Blood Cell Count 11.57 K/mm3 (4.00-11.30)
[2021-12-19 16:28] LABS: Albumin, Blood 3.7 g/dL (3.4-5.0); Albumin/Globulin Ratio 1.2 (0.8-1.8); Bilirubin, Total 0.6 mg/dL (0.1-1.0); Bun/Creatinine Ratio 19.7 (12.0-20.0); Calcium, Blood 9.6 mg/dL (8.5-10.1); Creatinine, Blood 0.76 mg/dL (0.40-1.00); Globulin, Blood 3.1 g/dL (2.2-4.0); Potassium, Blood 3.4 mmol/L (3.5-5.5); Total Protein, Blood 6.8 g/dL (6.4-8.2)
[2021-12-19 18:54] LABS: International Normalized Ratio 0.99; Prothrombin Time Results 10.4 Sec (9.7-11.5)
[2021-12-20 01:39] LABS: Influenza A, PCR NEGATIVE (NEGATIVE); Influenza B, PCR NEGATIVE (NEGATIVE); Resp Syncytial Virus, PCR NEGATIVE (NEGATIVE); SARS-Cov-2 (COVID-19) PCR, MMC NEGATIVE (NEGATIVE)
--- NOTE | 2021-12-20 03:28 | NUR ---
SHIFT SUMMARY PT ADMITTED FOR L HIP FX. CAME IN VIA GURNEY FROM ED SLIDE TO HOSPITAL BED. PT REPORTS SEVERE PAIN WITH MOVEMENT. INSERTED MONGE CATH, TOLERATED IT WELL. PT ON IV NS FLUIDS INFUSING WITH TELEPHONE MESSENGER - FENTANYL (ON DEMAND). PT REPORTS PAIN LEVEL 7-8/10. VSS. 2L NC DUE TO NARCOTICS. SATS ON 91-94%. PT O2 SAT AT 87% ON ROOM AIR INTERMITTENTLY. ROOM AIR ON BASELINE. CBG AC/HS LAST NIGHT. NPO TODAY FOR SURGERY. Q6 CBG. NO COVERAGE NEEDED OVERNIGHT. SURGICAL PREP DONE. AOX4. BEDREST. CALL LIGHT WITHIN REACH. WILL CONTINUE TO MONITOR PT OVERNIGHT. AND WILL PROVIDE REPORT TO ONCOMING NURSE.
[2021-12-20 06:06] LABS: BASOPHILS ABSOLUTE AUTO 0.02 K/mm3 (0.00-0.23); BASOPHILS PERCENT AUTO 0 % (0-2); EOSINOPHILS ABSOLUTE AUTO 0.08 K/mm3 (0.00-0.68); EOSINOPHILS PERCENT AUTO 1 % (0-6); Hematocrit 35.1 % (33.0-51.0); Hemoglobin 11.9 g/dL (11.5-16.0); IMMATURE GRAN ABSOLUTE AUTO 0.02 K/mm3 (0.00-0.10); IMMATURE GRAN PERCENT AUTO 0 % (0-1); LYMPHOCYTES ABSOLUTE AUTO 1.21 K/mm3 (0.84-5.20); LYMPHOCYTES PERCENT AUTO 16 % (21-46); MONOCYTES ABSOLUTE AUTO 0.46 K/mm3 (0.16-1.47); MONOCYTES PERCENT AUTO 6 % (4-13); Mean Corpuscular HGB 29.2 pg (26.0-34.0); Mean Corpuscular HGB Conc 33.9 g/dL (31.5-36.5); Mean Corpuscular Volume 86 fL (80-100); Mean Platelet Volume 9.8 fL (9.1-12.4); NEUTROPHILS PERCENT AUTO 76 % (41-73); Platelet Count 183 K/mm3 (150-400); RDW Coefficient Variation 13.8 % (11.7-14.2); RDW Standard Deviation 43.8 fL (35.1-46.3); Red Blood Cell Count 4.08 M/mm3 (3.80-5.20); White Blood Cell Count 7.39 K/mm3 (4.00-11.30)
[2021-12-20 06:22] LABS: International Normalized Ratio 1.04; Prothrombin Time Results 10.9 Sec (9.7-11.5)
[2021-12-20 06:40] LABS: Magnesium, Blood 1.9 mg/dL (1.6-2.4)
[2021-12-20 06:43] LABS: Albumin, Blood 3.3 g/dL (3.4-5.0); Bilirubin, Total 0.6 mg/dL (0.1-1.0); Bun/Creatinine Ratio 23.5 (12.0-20.0); Creatinine, Blood 0.72 mg/dL (0.40-1.00); Globulin, Blood 3.2 g/dL (2.2-4.0); Phosphorus, Blood 3.5 mg/dL (2.5-4.9); Potassium, Blood 4.4 mmol/L (3.5-5.5); Total Protein, Blood 6.5 g/dL (6.4-8.2)
[2021-12-20] MEDS ORDERED: ESTRADIOL42.5 GM VAG (07:56)
[2021-12-20] MEDS ORDERED: IRON PO (07:58)
[2021-12-20] MEDS ORDERED: ASCO500 PO (07:59)
[2021-12-20] MEDS ORDERED: OZEMPIC1 MG/0.72 SC (08:02)
--- NOTE | 2021-12-20 08:41 | NUR ---
PT RESTING IN BED, FAMILY AT BEDSIDE, REPORTS PAIN IS TOLERABLE WITH BORDER MEASURER, PLAN FOR OR TODAY, PT IS NPO.
--- NOTE | 2021-12-20 11:15 | NUR ---
pt taken to day surgery.
--- NOTE | 2021-12-20 14:38 | NUR ---
POST OP ARRIVED BACK TO ROOM VIA BED, AWAKE, REPORTS PAIN IS "OK" AT THIS TIME, DENIES ANY NAUSEA OR SOB, 2L O2 VIA NC NOTED IN PLACE, MONGE CATH INTACT W/ YELLOW URINE, LUNGS CLEAR, DIM. AT BASES, HRR, HYPOACTIVE BT'S X4, ABD SOFT, L HIP W/ GAUZE DRESSING C/D/I, DENIES ANY NUMBNESS OR TINGLING, PT ABLE TO WIGGLE TOES BILATERALLY, PEDAL PULSES PALPABLE, CONT. TO MONITOR FOR ANY CHANGES.
--- NOTE | 2021-12-20 17:37 | NUR ---
SUMMARY VSS, A&OX4 DENIES ANY NEED FOR PAIN MEDS AT THIS TIME, EATING DINNER, TOLERATING WELL, DSG C/D/I, PT ATTEMPTED TO SEE PATIENT THIS AFTERNOON BUT WAS TOO DROWSY, NO ACUTE CHANGES THIS SHIFT.
--- NOTE | 2021-12-21 04:12 | NUR ---
POD1 FOR FEMORAL RODDING. VSS, BP NOTED TO BE SOFT, PT ASYMPOMATIC. FLUIDS CONTINUED PER ORDERS. THE PT HAS BEEN ABLE TO SLEEP WEL T/O THE NIGHT. LLE HAS FULL SENSATION AND CIRCULATION, BANDAGES REMAIN C/D/I. PATIENT IS MOBILIZING THIS LEG IN BED TO DECREASE STIFFNESS. PAIN HAS BEEN MANAGED WITH OXY AND TYLENOL. PT HAS NOT GOTTEN OOB THIS SHIFT BUT PLANS TO THIS AM WITH PTJay MONGE IN PLACE WITH PLANS TO D/C THIS AM. DENIES ANY NEEDS.
[2021-12-21 04:52] LABS: BASOPHILS ABSOLUTE AUTO 0.01 K/mm3 (0.00-0.23); BASOPHILS PERCENT AUTO 0 % (0-2); EOSINOPHILS ABSOLUTE AUTO 0.01 K/mm3 (0.00-0.68); EOSINOPHILS PERCENT AUTO 0 % (0-6); Hematocrit 29.2 % (33.0-51.0); Hemoglobin 9.7 g/dL (11.5-16.0); IMMATURE GRAN ABSOLUTE AUTO 0.04 K/mm3 (0.00-0.10); IMMATURE GRAN PERCENT AUTO 1 % (0-1); LYMPHOCYTES PERCENT AUTO 13 % (21-46); MONOCYTES ABSOLUTE AUTO 0.52 K/mm3 (0.16-1.47); MONOCYTES PERCENT AUTO 6 % (4-13); Mean Corpuscular HGB Conc 33.2 g/dL (31.5-36.5); Mean Corpuscular Volume 87 fL (80-100); Mean Platelet Volume 9.6 fL (9.1-12.4); NEUTROPHILS ABSOLUTE AUTO 6.89 K/mm3 (1.96-9.15); NEUTROPHILS PERCENT AUTO 80 % (41-73); Platelet Count 146 K/mm3 (150-400); RDW Coefficient Variation 13.9 % (11.7-14.2); RDW Standard Deviation 44.7 fL (35.1-46.3); Red Blood Cell Count 3.35 M/mm3 (3.80-5.20); White Blood Cell Count 8.57 K/mm3 (4.00-11.30)
[2021-12-21 05:16] LABS: Albumin, Blood 2.9 g/dL (3.4-5.0); Bilirubin, Total 0.5 mg/dL (0.1-1.0); Bun/Creatinine Ratio 28.8 (12.0-20.0); Calcium, Blood 8.4 mg/dL (8.5-10.1); Creatinine, Blood 0.8 mg/dL (0.40-1.00); Globulin, Blood 2.8 g/dL (2.2-4.0); Magnesium, Blood 1.8 mg/dL (1.6-2.4); Potassium, Blood 4.1 mmol/L (3.5-5.5); Total Protein, Blood 5.7 g/dL (6.4-8.2)
--- NOTE | 2021-12-21 17:22 | NUR ---
SHIFT SUMMARY POD1L GAMMA NAIL, A/OX4, VSS THOUGH BP HAS BEEN SOFT, MONGE IN PLACE FOR VOIDING, USES BSC FOR BM, PT WAS UP TO THE CHAIR T/O MOST OF THE SHIFT, PAIN WELL MANAGED THOUGH PT REPORTS FEELING LIKE SHE WENT TOO LONG WITHOUT ASKING FOR PAIN MEDICATIONS WHICH WILL BE RELAYED TO NOC RN. MUSCLE RELAXER ORDER OBTAINED FOR REPORTED MUSCLE SPASMS, FAMILY AT BEDSIDE FOR SUPPORT. CALL LIGHT IN REACH, WILL CTM AND REPORT TO ONCOMING NOC RN.
--- NOTE | 2021-12-21 18:53 | NUR ---
PT HYPOTENSIVE 74/37. DR THEODORE NOTIFIED, ORDER FOR 1L NS BOLUS AND TO NOTIFY NOC HOSPITALIST. DR OSROIO NOTIFIED, ORDER TO MONITOR VS FOLLOWING BOLUS.
--- NOTE | 2021-12-21 18:55 | NUR ---
BP PATIENT VITALS TAKEN AT END OF SHIFT SHOW BP OF 74/37 TAKEN BY VETERINARY TECHNOLOGY INSTRUCTOR WHO IMMEDIATLY NOTIFIED PRIMARY RN. CAME IN TO ASSESS PT WHO WAS LYING FLAT IN BED, ABLE TO ANSWER QUESTIONS WITHOUT DIFFICULTY, DENIES LIGHTHEADEDNESS/DIZZINESS, BP RETAKEN AND STILL FOUND TO BE LOW, DR NOTIFIED AND ORDER OBTAINED FOR A 1L BOLUS WHICH WAS PULLED ON OVERRIDE AND STARTED. THIS RN STAYED WITH PT MONITORING BP Q5M AND EVALUATING LOC. SO FAR NO SYMPTOMS BUT WILL CTM.
--- NOTE | 2021-12-21 19:50 | NUR ---
BOLUS COMPLETE, DR NELSON NOTIFIED OF PATIENTS VS. INSTRUCTED TO RUN MAINTINENCE FLUIDS. PATIENT REMAINS ASYMPTOMATIC.
--- NOTE | 2021-12-21 22:30 | NUR ---
BLOOD PRESSURE CHECK VSS, BP NOTED TO BE SOFT. MAINTENENCE FLUIDS RUNNING PER HOSPITALIST ORDER. PT DENIES ANY PAIN AND DENIED NEEDED ANY ADDITIONAL PAIN MEDS.
--- NOTE | 2021-12-22 04:10 | NUR ---
POD2 FOR RODDING OF THE L FEMUR. VSS, DIASTOLIC NOTED TO BE LOW. MAINTENCE FLUIDS RUNNING AT THIS TIME. PATIENT HAS REMAINED ASYMPTOMATIC OF HYPOTENSION T/O THE SHIFT. TELE REPORTS SR IN THE 70S. THE PATIENT HAS SLEPT ON AND OFF T/O THE NIGHT DUE TO FREQUENT VS CHECKS. URINE OUTPUT NOTED TO BE 1850 MLS T/O THE SHIFT, PALE YELLOW. PAIN CONTROLLED WITH TYLENOL AND OXY, 5MGS OF OXY GIVEN AT A TIME DUE TO THE RISK OF WORSENING HYPOTENSION. THE PT WAS ABLE TO BE TITRATED OFF OF OXYGEN, NOW RESTING AT >95% ON RA. THE PT IS CURRENTLY SLEEPING, IN NO DISTRESS. CALL LIGHT IN REACH.
[2021-12-22 05:25] LABS: BASOPHILS ABSOLUTE AUTO 0.02 K/mm3 (0.00-0.23); BASOPHILS PERCENT AUTO 0 % (0-2); EOSINOPHILS ABSOLUTE AUTO 0.12 K/mm3 (0.00-0.68); EOSINOPHILS PERCENT AUTO 2 % (0-6); Hematocrit 26.6 % (33.0-51.0); Hemoglobin 8.8 g/dL (11.5-16.0); IMMATURE GRAN ABSOLUTE AUTO 0.03 K/mm3 (0.00-0.10); IMMATURE GRAN PERCENT AUTO 1 % (0-1); LYMPHOCYTES ABSOLUTE AUTO 1.29 K/mm3 (0.84-5.20); LYMPHOCYTES PERCENT AUTO 25 % (21-46); MONOCYTES ABSOLUTE AUTO 0.43 K/mm3 (0.16-1.47); MONOCYTES PERCENT AUTO 8 % (4-13); Mean Corpuscular HGB 29.2 pg (26.0-34.0); Mean Corpuscular HGB Conc 33.1 g/dL (31.5-36.5); Mean Corpuscular Volume 88 fL (80-100); Mean Platelet Volume 10.1 fL (9.1-12.4); NEUTROPHILS ABSOLUTE AUTO 3.35 K/mm3 (1.96-9.15); NEUTROPHILS PERCENT AUTO 64 % (41-73); Platelet Count 126 K/mm3 (150-400); RDW Standard Deviation 45.2 fL (35.1-46.3); Red Blood Cell Count 3.01 M/mm3 (3.80-5.20); White Blood Cell Count 5.24 K/mm3 (4.00-11.30)
[2021-12-22 05:42] LABS: Albumin, Blood 2.7 g/dL (3.4-5.0); Anion Gap 2 mmol/L (6-16); Blood Urea Nitrogen 20 mg/dL (8-24); Bun/Creatinine Ratio 25.2 (12.0-20.0); CO2, Blood 28 mmol/L (21-32); Calcium, Blood 8.3 mg/dL (8.5-10.1); Chloride, Blood 108 mmol/L (98-108); Glomerular Filtration Rate 75 (60-); Glucose, Blood 98 mg/dL (70-99); Magnesium, Blood 1.9 mg/dL (1.6-2.4); Sodium, Blood 138 mmol/L (136-145)
[2021-12-22 16:38] LABS: Influenza A, PCR NEGATIVE (NEGATIVE); Influenza B, PCR NEGATIVE (NEGATIVE); Resp Syncytial Virus, PCR NEGATIVE (NEGATIVE); SARS-Cov-2 (COVID-19) PCR, MMC NEGATIVE (NEGATIVE)
--- NOTE | 2021-12-23 00:08 | NUR ---
EDUCATION PT EDUCATED ON THE IMPORTANCE OF GETTING UP TO USE THE BSC OR BATHROOM, EDUCATED ON INFECTION PREVENTION AND SKIN CARE RELATED TO REPOSITIONING AND KEEPING LEYDI AREA DRY.
[2021-12-23 06:40] LABS: BASOPHILS ABSOLUTE AUTO 0.02 K/mm3 (0.00-0.23); BASOPHILS PERCENT AUTO 0 % (0-2); EOSINOPHILS ABSOLUTE AUTO 0.07 K/mm3 (0.00-0.68); EOSINOPHILS PERCENT AUTO 1 % (0-6); Hematocrit 25.6 % (33.0-51.0); Hemoglobin 8.5 g/dL (11.5-16.0); IMMATURE GRAN ABSOLUTE AUTO 0.03 K/mm3 (0.00-0.10); IMMATURE GRAN PERCENT AUTO 1 % (0-1); LYMPHOCYTES ABSOLUTE AUTO 1.34 K/mm3 (0.84-5.20); LYMPHOCYTES PERCENT AUTO 24 % (21-46); MONOCYTES ABSOLUTE AUTO 0.43 K/mm3 (0.16-1.47); MONOCYTES PERCENT AUTO 8 % (4-13); Mean Corpuscular HGB 29.2 pg (26.0-34.0); Mean Corpuscular HGB Conc 33.2 g/dL (31.5-36.5); Mean Corpuscular Volume 88 fL (80-100); Mean Platelet Volume 10.1 fL (9.1-12.4); NEUTROPHILS ABSOLUTE AUTO 3.73 K/mm3 (1.96-9.15); NEUTROPHILS PERCENT AUTO 66 % (41-73); Platelet Count 153 K/mm3 (150-400); RDW Coefficient Variation 13.9 % (11.7-14.2); RDW Standard Deviation 44.6 fL (35.1-46.3); Red Blood Cell Count 2.91 M/mm3 (3.80-5.20); White Blood Cell Count 5.62 K/mm3 (4.00-11.30)
[2021-12-23 07:04] LABS: Albumin, Blood 2.5 g/dL (3.4-5.0); Albumin/Globulin Ratio 0.9 (0.8-1.8); Bilirubin, Total 0.5 mg/dL (0.1-1.0); Bun/Creatinine Ratio 19.1 (12.0-20.0); Creatinine, Blood 0.58 mg/dL (0.40-1.00); Globulin, Blood 2.7 g/dL (2.2-4.0); Potassium, Blood 3.8 mmol/L (3.5-5.5); Total Protein, Blood 5.2 g/dL (6.4-8.2)
--- NOTE | 2021-12-23 11:10 | NUR ---
TRANSFER SUMMARY PT A&OX4, VSS/RA, SERENITY PO, VOIDING WELL, PAIN MANAGED WELL WITH NORCO, AMB SBA FWW & GB, UP TO CHAIR/BSC, IV DC'D. LEFT WITH TRANSPORT WITH ALL PERSONAL POSSESSIONS, SUITCASE/HYGIENE BAG/CELL PHONE. PACKET PROVIDED. REPORT PROVIDED TO DEANNA AT .
== END 2021-12-23 11:15 | disposition home or self-care (01) | DRG 482 ==
LOC: ER 13:10 → SURS 17:23
PROVIDERS: Emergency Medicine; Hospitalist; Orthopaedic Surgery; ADMIT Family Medicine
PROC: 0QS736Z Reposition Left Upper Femur with Intramedullary Internal Fixation Device, Percutaneous Approach (ICD-10-PCS; principal; 2021-12-20 12:00)
DX: S72.142A Displaced intertrochanteric fracture of left femur, initial encounter for closed fracture (principal); E03.9 Hypothyroidism, unspecified; E11.9 Type 2 diabetes mellitus without complications; I10 Essential (primary) hypertension; M50.10 Cervical disc disorder with radiculopathy, unspecified cervical region; D50.9 Iron deficiency anemia, unspecified; Z88.1 Allergy status to other antibiotic agents; Z88.0 Allergy status to penicillin; Z88.8 Allergy status to other drugs, medicaments and biological substances; Z88.5 Allergy status to narcotic agent; Z79.01 Long term (current) use of anticoagulants; Z20.822 Contact with and (suspected) exposure to COVID-19; Z95.2 Presence of prosthetic heart valve; Z90.49 Acquired absence of other specified parts of digestive tract; Z90.710 Acquired absence of both cervix and uterus; Z96.653 Presence of artificial knee joint, bilateral; Z79.82 Long term (current) use of aspirin; Z79.899 Other long term (current) drug therapy; Z79.84 Long term (current) use of oral hypoglycemic drugs; Z79.02 Long term (current) use of antithrombotics/antiplatelets; D72.828 Other elevated white blood cell count; W01.0XXA Fall on same level from slipping, tripping and stumbling without subsequent striking against object, initial encounter; E78.00 Pure hypercholesterolemia, unspecified; I25.2 Old myocardial infarction; Z98.890 Other specified postprocedural states; I25.10 Atherosclerotic heart disease of native coronary artery without angina pectoris; Z94.9 Transplanted organ and tissue status, unspecified
CPT/HCPCS: 0241U; 36415; 73502; 73552; 80053; 80069; 82947; 83735; 84100; 84484; 85025; 85610; 85730; 93005; 93010; 94762; 96374; 96375; 96376; 97110; 97116; 97161; 97166; 97530; 97535; 99285-25; A9270; C1713; C1769; J1100; J1170; J1650; J1885; J2250; J2405; J2704; J3010; J3370; J3480; J7030; J7120

== ENCOUNTER 2022-01-01 18:21 | Emergency (ER) | payer MEDICARE ==
[~2022-01-01] VITALS: Ht 172.7 cm; Wt 77.1 kg
[~2022-01-01 18:21] MED LIST changes: +ASCO500 PO; +BISOPROLOL-HCT1 EACH PO; +ESTRADIOL42.5 GM VAG; +IRON PO; +LEVSOD25 PO; +OZEMPIC0.25 MG/0. SQ; +OZEMPIC1 MG/0.72 SC
[2022-01-01 19:52] LABS: Calcium, Blood 9.5 mg/dL (8.5-10.1); Creatinine, Blood 0.66 mg/dL (0.40-1.00); Potassium, Blood 4.2 mmol/L (3.5-5.5)
== END 2022-01-01 22:31 | disposition home or self-care (01) ==
LOC: ER 18:21
PROVIDERS: Student in an Organized Health Care Education/Training Program
DX: M79.89 Other specified soft tissue disorders (principal); R58 Hemorrhage, not elsewhere classified; E11.9 Type 2 diabetes mellitus without complications; I25.10 Atherosclerotic heart disease of native coronary artery without angina pectoris; E03.9 Hypothyroidism, unspecified; I10 Essential (primary) hypertension; Z79.899 Other long term (current) drug therapy; Z79.82 Long term (current) use of aspirin; Z88.1 Allergy status to other antibiotic agents; Z88.5 Allergy status to narcotic agent; Z88.0 Allergy status to penicillin; Z88.8 Allergy status to other drugs, medicaments and biological substances; Z79.84 Long term (current) use of oral hypoglycemic drugs
CPT/HCPCS: 36415; 80048; 93971

== ENCOUNTER 2022-02-17 13:24 | Inpatient (IN) | payer MEDICARE ==
[~2022-02-17] VITALS: Ht 170.2 cm; Wt 74.6 kg
[2022-02-17 14:10] LABS: BASOPHILS ABSOLUTE AUTO 0.02 K/mm3 (0.00-0.23); BASOPHILS PERCENT AUTO 0 % (0-2); EOSINOPHILS ABSOLUTE AUTO 0.12 K/mm3 (0.00-0.68); EOSINOPHILS PERCENT AUTO 2 % (0-6); Hematocrit 37.7 % (33.0-51.0); Hemoglobin 12.4 g/dL (11.5-16.0); IMMATURE GRAN ABSOLUTE AUTO 0.01 K/mm3 (0.00-0.10); IMMATURE GRAN PERCENT AUTO 0 % (0-1); LYMPHOCYTES ABSOLUTE AUTO 1.85 K/mm3 (0.84-5.20); LYMPHOCYTES PERCENT AUTO 33 % (21-46); MONOCYTES ABSOLUTE AUTO 0.46 K/mm3 (0.16-1.47); MONOCYTES PERCENT AUTO 8 % (4-13); Mean Corpuscular HGB 28.8 pg (26.0-34.0); Mean Corpuscular HGB Conc 32.9 g/dL (31.5-36.5); Mean Corpuscular Volume 88 fL (80-100); Mean Platelet Volume 9.9 fL (9.1-12.4); NEUTROPHILS ABSOLUTE AUTO 3.18 K/mm3 (1.96-9.15); NEUTROPHILS PERCENT AUTO 56 % (41-73); Platelet Count 273 K/mm3 (150-400); Red Blood Cell Count 4.31 M/mm3 (3.80-5.20); White Blood Cell Count 5.64 K/mm3 (4.00-11.30)
[2022-02-17 14:22] LABS: Albumin, Blood 3.4 g/dL (3.4-5.0); Albumin/Globulin Ratio 0.9 (0.8-1.8); Bilirubin, Total 0.2 mg/dL (0.1-1.0); Bun/Creatinine Ratio 40.4 (12.0-20.0); Calcium, Blood 9.5 mg/dL (8.5-10.1); Creatinine, Blood 0.67 mg/dL (0.40-1.00); Globulin, Blood 3.8 g/dL (2.2-4.0); Potassium, Blood 4.1 mmol/L (3.5-5.5); Total Protein, Blood 7.2 g/dL (6.4-8.2)
--- NOTE | 2022-02-17 18:48 | NUR ---
NURSING PCU ADMISSION/DAYSHIFT SUMMARY: Assumed care of pt at approx 1815. Arrived from ER via gurney accompanied by RN x2. A/O, very pleasant, cooperative w/care. Ambulates independently w/use of cane, denies dizziness/light headedness. Skin fragile though intact w/no breakdown noted. Pain r/t recent L femur fx/repair, denies need for medication management. Tele in place, NSR w/BBB, HR 90's, no c/o CP/pressure, HTN w/SBP 191 upon arrival, no noted edema. L/S cta t/o, O2 sat 100% on RA, no noted cough, denies dyspnea. Abd SNT, BT+, voiding w/o difficulty. PIV x1 w/NS infusing at 75cc/hr. No s/s of acute distress at this time. Pt sitting up in bed eating supper while talking on phone w/family. Denies any current needs or questions regarding plan of care. Cardiology consult called to ans service, NPO at 2400 for possible HC procedure 02/18. Call light in reach, cont to monitor until rpt is given to NOC RN.
[2022-02-17 20:06] LABS: Free Thyroxine 0.93 ng/dL (0.70-1.60); Thyroid Stimulating Hormone 1.1 uIU/mL (0.360-4.800)
[2022-02-18 04:17] LABS: BASOPHILS ABSOLUTE AUTO 0.02 K/mm3 (0.00-0.23); BASOPHILS PERCENT AUTO 0 % (0-2); EOSINOPHILS ABSOLUTE AUTO 0.15 K/mm3 (0.00-0.68); EOSINOPHILS PERCENT AUTO 3 % (0-6); Hemoglobin 12.6 g/dL (11.5-16.0); IMMATURE GRAN ABSOLUTE AUTO 0.02 K/mm3 (0.00-0.10); IMMATURE GRAN PERCENT AUTO 0 % (0-1); LYMPHOCYTES ABSOLUTE AUTO 2.07 K/mm3 (0.84-5.20); LYMPHOCYTES PERCENT AUTO 35 % (21-46); MONOCYTES ABSOLUTE AUTO 0.58 K/mm3 (0.16-1.47); MONOCYTES PERCENT AUTO 10 % (4-13); Mean Corpuscular HGB 27.9 pg (26.0-34.0); Mean Corpuscular HGB Conc 31.5 g/dL (31.5-36.5); Mean Corpuscular Volume 89 fL (80-100); Mean Platelet Volume 9.7 fL (9.1-12.4); NEUTROPHILS ABSOLUTE AUTO 3.13 K/mm3 (1.96-9.15); NEUTROPHILS PERCENT AUTO 53 % (41-73); Platelet Count 277 K/mm3 (150-400); RDW Standard Deviation 45.5 fL (35.1-46.3); Red Blood Cell Count 4.52 M/mm3 (3.80-5.20); White Blood Cell Count 5.97 K/mm3 (4.00-11.30)
[2022-02-18 04:35] LABS: Albumin, Blood 3.3 g/dL (3.4-5.0); Albumin/Globulin Ratio 0.8 (0.8-1.8); Bilirubin, Total 0.3 mg/dL (0.1-1.0); Bun/Creatinine Ratio 31.7 (12.0-20.0); Calcium, Blood 9.4 mg/dL (8.5-10.1); Creatinine, Blood 0.66 mg/dL (0.40-1.00); Globulin, Blood 3.9 g/dL (2.2-4.0); Total Protein, Blood 7.2 g/dL (6.4-8.2)
--- NOTE | 2022-02-18 04:56 | NUR ---
SHIFT SUMMARY PT A&Ox4, CALLS AND COMMNICATES NEEDS APPROPRIATELY. BP ELEVATED WITH SBP 130-160's, PRN IV HYDRALAZINE FOR SBP >170. SINUS W/ BBB 70's UP TO 100 WITH ACTIVITY. PT DENIES CP/PRESSURE THOUGHOUT SHIFT. SpO2> 92% RA, DENIES SOB. PT SBA WITH CANE TO BATHROOM. PT NPO AT 0000. NO EVENTS THIS SHIFT, WILL REPORT TO DAY SHIFT RN.
--- NOTE | 2022-02-18 10:56 | NUR ---
Spiritual care visit conducted. After receivinga referral for spiritual care, I visit pt. Pt is lying in bed and alert. Pt is very talkative but pleasant. She talks at length about her family her Jewish staci and the of her spouse (3 yrs ago). She tells me her thoughts about her upcoming surgery and her concerns for her family. I provide prayer for the upcoming surgery and for her family and provide grief support. Pt shows signs of being comforted and encouraged in her staci. I will continue to remain available to pt and family.
--- NOTE | 2022-02-18 17:58 | NUR ---
SHIFT SUMMARY PATIENT ALERT AND ORIENTED THROUGHOUT SHIFT. PLACEMENT OF PACEMAKER POSTPONED UNTIL TOMORROW 02/19/2022. TOLERATING CARDIAC DIET AND LIQUIDS. SALINE LOCKED AT THIS TIME. BLOOD THINNERS HELD, SEE EMAR. SBA TO BATHROOM. SR IN 90S WITH BBB AND PVCS ALL DAY. WILL BE NPO AFTER MIDNIGHT.
[2022-02-19 03:53] LABS: BASOPHILS ABSOLUTE AUTO 0.02 K/mm3 (0.00-0.23); BASOPHILS PERCENT AUTO 0 % (0-2); EOSINOPHILS ABSOLUTE AUTO 0.12 K/mm3 (0.00-0.68); EOSINOPHILS PERCENT AUTO 2 % (0-6); Hemoglobin 11.9 g/dL (11.5-16.0); IMMATURE GRAN ABSOLUTE AUTO 0.01 K/mm3 (0.00-0.10); IMMATURE GRAN PERCENT AUTO 0 % (0-1); LYMPHOCYTES ABSOLUTE AUTO 1.51 K/mm3 (0.84-5.20); LYMPHOCYTES PERCENT AUTO 31 % (21-46); MONOCYTES ABSOLUTE AUTO 0.54 K/mm3 (0.16-1.47); MONOCYTES PERCENT AUTO 11 % (4-13); Mean Corpuscular HGB 28.3 pg (26.0-34.0); Mean Corpuscular HGB Conc 32.2 g/dL (31.5-36.5); Mean Corpuscular Volume 88 fL (80-100); Mean Platelet Volume 9.6 fL (9.1-12.4); NEUTROPHILS ABSOLUTE AUTO 2.72 K/mm3 (1.96-9.15); NEUTROPHILS PERCENT AUTO 55 % (41-73); Platelet Count 247 K/mm3 (150-400); RDW Coefficient Variation 14.1 % (11.7-14.2); RDW Standard Deviation 45.6 fL (35.1-46.3); White Blood Cell Count 4.92 K/mm3 (4.00-11.30)
[2022-02-19 04:14] LABS: Bun/Creatinine Ratio 32.6 (12.0-20.0); Calcium, Blood 9.4 mg/dL (8.5-10.1); Creatinine, Blood 0.71 mg/dL (0.40-1.00); Potassium, Blood 4.1 mmol/L (3.5-5.5)
--- NOTE | 2022-02-19 05:01 | NUR ---
SHIFT SUMMARY PT A&Ox4, CALLS AND COMMNICATES NEEDS APPROPRIATELY. BP ELEVATED WITH SBP UP TO 150's, PRN IV HYDRALAZINE ORDERED FOR SBP >170. SINUS W/ BBB 70's UP TO 100 WITH ACTIVITY. PT DENIES CP/PRESSURE THOUGHOUT SHIFT. SpO2> 92% RA, DENIES SOB. PT SBA WITH CANE TO BATHROOM. PT NPO AT 0000. NO EVENTS THIS SHIFT, WILL REPORT TO DAY SHIFT RN.
--- NOTE | 2022-02-19 18:57 | NUR ---
PT A/OX4 AND COOPERATIVE OF CARE. VSS THROUGHOUT SHIFT WITH O2 SATS >92% ON RA. NO REPORT OF CHEST PAIN/PRESSURE THROUGHOUT SHIFT. NO REPORT OF CHEST PAIN/PRESSURE THROUGHOUT SHIFT. PT HAD PACEMAKER PLACED, LEFT CHEST WALL INCISION. ICE PACK IN PLACE ON INCISION SITE. PT REPORTED MINOR ACHING OF PACER SITE, TREATED PER EMAR. PT REPORTED "STOMACH IS RUMBLING ALOT" AFTER PROCEDURE. PT REPORTED THAT HER APETITE "IS NOT THERE." STOMACH CLEARED LATER, PT ABLE TO EAT SOME LUNCH.
--- NOTE | 2022-02-20 05:37 | NUR ---
SHIFT SUMMARY ASSUMED CARE OF PT AT 1900. PT IS A/OX4. HEART SOUNDS REGULAR. LUNG SOUNDS CLEAR. PT PACEMAKER SITE HAS SOME DRAINAGE AT START OF SHIFT AND REMAINED THE SAME AT THE END. PT C/O PAIN IN HER SHOULDER AND AT THE SITE. ICE THERAPY AND TYLENOL FOR PAIN. PT WAS A 1P SBA TO BATHROOM WITH CANE. PT CONCERNED ABOUT GOING HOME AND DOING ADLS HERSELF WHILE SHE IS RECOVERING. TELE MONITOR NOTED SLIGHT CHANGES IN ST ELEVATION AT 1999. EKG DONE, RESULTS ARE SIMILAR TO EKG IN ER, PT DENIES HAVING AND SYMPTOMS.
--- NOTE | 2022-02-20 13:41 | NUR ---
DISCHARGE UPDATE DISCHATGE PACKET GONE OVER WITH PT AND PT DAUGHTER AT 1310. PT DISCHARGED AT 1337 VIA WHEELCHAIR AND ON RA. PT ABLE TO TRANSFER SELF TO AND FROM WHEELCHAIR ON HER OWN USING A CANE. PACEMAKER CARD IN DISCHARGE PACKET AND WITH DAUGHTER DURING DISCHARGE. PACEMAKER MONITOR WITH PT DAUGHTER DURING DISCHARGE. PT BELONGINGS IN BAGS AND WITH DAUGHTER DURING DISCHARGE. PT HAS SHOULDER IMOBILIZER IN PLACE PER HER REQUEST.
== END 2022-02-20 13:38 | disposition home or self-care (01) | DRG 244 ==
LOC: ER 13:24 → PCU 17:10
PROVIDERS: Emergency Medicine; Family Medicine; ADMIT Internal Medicine
PROC: 0JH606Z Insertion of Pacemaker, Dual Chamber into Chest Subcutaneous Tissue and Fascia, Open Approach (ICD-10-PCS; principal; 2022-02-19)
PROC: 02H63JZ Insertion of Pacemaker Lead into Right Atrium, Percutaneous Approach (ICD-10-PCS; 2022-02-19)
PROC: 02HK3JZ Insertion of Pacemaker Lead into Right Ventricle, Percutaneous Approach (ICD-10-PCS; 2022-02-19)
DX: I44.39 Other atrioventricular block (principal); I49.5 Sick sinus syndrome; I45.5 Other specified heart block; E03.9 Hypothyroidism, unspecified; E78.00 Pure hypercholesterolemia, unspecified; I10 Essential (primary) hypertension; Z51.5 Encounter for palliative care; I25.10 Atherosclerotic heart disease of native coronary artery without angina pectoris; K46.9 Unspecified abdominal hernia without obstruction or gangrene; M50.10 Cervical disc disorder with radiculopathy, unspecified cervical region; D50.9 Iron deficiency anemia, unspecified; I44.7 Left bundle-branch block, unspecified; Z98.890 Other specified postprocedural states; Z90.49 Acquired absence of other specified parts of digestive tract; I25.2 Old myocardial infarction; Z90.710 Acquired absence of both cervix and uterus; Z88.0 Allergy status to penicillin; Z96.653 Presence of artificial knee joint, bilateral; Z88.1 Allergy status to other antibiotic agents; Z88.5 Allergy status to narcotic agent; Z88.8 Allergy status to other drugs, medicaments and biological substances; Z79.82 Long term (current) use of aspirin; Z79.02 Long term (current) use of antithrombotics/antiplatelets; Z79.84 Long term (current) use of oral hypoglycemic drugs; Z79.899 Other long term (current) drug therapy; Z98.1 Arthrodesis status
CPT/HCPCS: 33208; 36415; 71045; 71046; 76937; 80048; 80053; 83880; 84439; 84443; 84484; 85025; 93005; 93010; 97116; 97162; 97530; 99152; 99153; 99285-25; A9270; C1781; C1785; C1894; C1898; J1644; J2250; J3010; J3370; J7030; J7040; J7050

== ENCOUNTER → 2022-04-09 | Outpatient (CLI) | payer MEDICARE | LOC: LAB SHORT 09:45 → LAB 09:45 | DX: R35.0 Frequency of micturition (principal) | CPT/HCPCS: 87077; 87086; 87186 ==

== ENCOUNTER 2022-08-12 07:52 | Day surgery (SDC) | payer MEDICARE ==
[~2022-08-12] VITALS: Ht 167.6 cm; Wt 78.1 kg
[~2022-08-12 07:52] MED LIST changes: +ACET500 PO; +Calcium Carbon500 MG PO; +PANT20 PO
--- NOTE | 2022-08-12 08:55 | NUR ---
08/12/[address] NOTIFIED THAT THE PT GET NAUSEA AND VOMITING WITH ANCEF. DR HUANG TALKED WITH DR BEATTY WILL USE ANCEF AND ANTIEMETICS TO HELP WITH NAUSEA AND VOMITING.
--- NOTE | 2022-08-12 10:17 | NUR ---
08/12/22 Karma7 Awilda Soto ROPIVACAINE 0.5% 20ML VERIFIED AND MIXED WITH 0.1ML (1MG/ML) OF EPI TO MAKE ROPIVACAINE 0.5% 1:200,000 FOR INJECTION AT [facility] BY DR HUANG.
[2022-08-12 11:45] VITALS: BP 132/67
== END 2022-08-12 12:00 | disposition home or self-care (01) ==
LOC: ORSCSDS 07:52 → ORSCMMR 09:30 → ORSCSDS 10:30 → ORSCMMR 10:30 → ORSCSDS 12:00
PROVIDERS: Orthopaedic Surgery
PROC: 0QP704Z Removal of Internal Fixation Device from Left Upper Femur, Open Approach (ICD-10-PCS; principal; 2022-08-12 09:30)
DX: T84.84XA Pain due to internal orthopedic prosthetic devices, implants and grafts, initial encounter (principal); Z96.9 Presence of functional implant, unspecified; S72.002D Fracture of unspecified part of neck of left femur, subsequent encounter for closed fracture with routine healing; Z96.653 Presence of artificial knee joint, bilateral; I10 Essential (primary) hypertension; I25.10 Atherosclerotic heart disease of native coronary artery without angina pectoris; K21.9 Gastro-esophageal reflux disease without esophagitis; E11.9 Type 2 diabetes mellitus without complications; E78.00 Pure hypercholesterolemia, unspecified; Z79.899 Other long term (current) drug therapy; Z79.82 Long term (current) use of aspirin
CPT/HCPCS: 82947; C1713; J0171; J0690; J1100; J1885; J2250; J2405; J2704; J2795; J3010; J7120

== ENCOUNTER → 2022-12-11 | Outpatient (CLI) | payer MEDICARE | LOC: LAB 11:08 → LAB SHORT 11:08 | DX: R30.0 Dysuria (principal) | CPT/HCPCS: 87077; 87086; 87186 ==

== ENCOUNTER → 2023-01-28 | Outpatient (CLI) | payer MEDICARE | END | disposition home or self-care (01) | LOC: LAB SHORT 10:59 → LAB 10:59 | DX: R30.0 Dysuria (principal) | CPT/HCPCS: 87077; 87086; 87186 ==

== ENCOUNTER → 2023-12-20 | Outpatient (CLI) | payer MEDICARE ==
[2023-12-21 12:40] LABS: Stool Occult Bld Immuno 1 Negative (NEGATIVE)
== END | disposition home or self-care (01) ==
LOC: LAB 16:00 → LAB SHORT 16:00
PROVIDERS: Family Medicine
DX: E61.1 Iron deficiency (principal)
CPT/HCPCS: G0328

== ENCOUNTER → 2024-03-08 | Outpatient (CLI) | payer MEDICARE ==
[~2024-03-08] MED LIST changes: +LIDO700A20 TOP; +Robaxin750 MG PO
== END ==
LOC: LAB SHORT 08:10 → LAB 08:10
DX: R30.0 Dysuria (principal)
CPT/HCPCS: 87077; 87086; 87186

== ENCOUNTER 2024-03-10 20:53 | Emergency (ER) | payer MEDICARE ==
[~2024-03-10] VITALS: Ht 170.2 cm; Wt 77.1 kg
[~2024-03-10 20:53] MED LIST changes: -LIDO700A20 TOP; -Robaxin750 MG PO
[2024-03-10 21:31] LABS: BASOPHILS ABSOLUTE AUTO 0.02 K/mm3 (0.00-0.23); BASOPHILS PERCENT AUTO 0 % (0-2); EOSINOPHILS ABSOLUTE AUTO 0.05 K/mm3 (0.00-0.68); EOSINOPHILS PERCENT AUTO 1 % (0-6); Hematocrit 41.4 % (33.0-51.0); Hemoglobin 14.2 g/dL (11.5-16.0); IMMATURE GRAN ABSOLUTE AUTO 0.01 K/mm3 (0.00-0.10); IMMATURE GRAN PERCENT AUTO 0 % (0-1); LYMPHOCYTES ABSOLUTE AUTO 2.93 K/mm3 (0.84-5.20); LYMPHOCYTES PERCENT AUTO 42 % (21-46); MONOCYTES ABSOLUTE AUTO 0.52 K/mm3 (0.16-1.47); MONOCYTES PERCENT AUTO 8 % (4-13); Mean Corpuscular HGB 29.9 pg (26.0-34.0); Mean Corpuscular HGB Conc 34.3 g/dL (31.5-36.5); Mean Corpuscular Volume 87 fL (80-100); Mean Platelet Volume 9.3 fL (9.1-12.4); NEUTROPHILS ABSOLUTE AUTO 3.41 K/mm3 (1.96-9.15); NEUTROPHILS PERCENT AUTO 49 % (41-73); Platelet Count 200 K/mm3 (150-400); RDW Coefficient Variation 12.9 % (11.7-14.2); RDW Standard Deviation 41.1 fL (35.1-46.3); Red Blood Cell Count 4.75 M/mm3 (3.80-5.20); White Blood Cell Count 6.94 K/mm3 (4.00-11.30)
[2024-03-10] MEDS ORDERED: Morphine Sulfate 4 MG/1 ML Injection IV ONE (21:45)
[2024-03-10] MEDS ORDERED: Ondansetron HCl 2 MG / ML 2ML Vial IV ONE (21:45)
[2024-03-10 21:51] LABS: Albumin, Blood 4.1 g/dL (3.4-5.0); Bilirubin, Total 0.4 mg/dL (0.1-1.0); Bun/Creatinine Ratio 26.4 (12.0-20.0); Calcium, Blood 10.2 mg/dL (8.5-10.1); Creatinine, Blood 0.76 mg/dL (0.40-1.00); Potassium, Blood 3.9 mmol/L (3.5-5.5); Total Protein, Blood 8.1 g/dL (6.4-8.2)
[2024-03-10 22:14] LABS: Source, Urine Clean Catch
[2024-03-10 22:25] LABS: Bilirubin, Urine Neg (Neg); Blood, Urine Neg (Neg); Glucose Qualitative, Urine Neg (Neg); Ketones, Urine Neg (Neg); Leukocyte Esterase, Urine 1+ (Neg); Nitrite, Urine Neg (Neg); Protein, Urine Neg (Neg); Specific Gravity, Urine 1.005 (1.003-1.022); Urobilinogen, Urine NORM (Normal)
[2024-03-10 22:35] LABS: Appearance, Urine Clear (Clear); Color, Urine Yellow (P-Yellow)
[2024-03-10 22:36] LABS: Bacteria Rare /hpf; Red Blood Cells, Urine Not Seen /hpf (0-2); Squamous Epithelial Cells Few /hpf (Few); White Blood Cells, Urine 0-2 /hpf (0-5)
[2024-03-10 23:03] LABS: Influenza A, PCR NEGATIVE (NEGATIVE); Influenza B, PCR NEGATIVE (NEGATIVE); Resp Syncytial Virus, PCR NEGATIVE (NEGATIVE); SARS-Cov-2 (COVID-19) PCR, MMC NEGATIVE (NEGATIVE)
[2024-03-10] MEDS ORDERED: Methocarbamol 500 MG Tab PO ONE (23:50)
[2024-03-11] MEDS ORDERED: Robaxin750 MG PO (00:13)
[2024-03-11] MEDS ORDERED: LIDO700A20 TOP (00:13)
[2024-03-11 00:30] VITALS: BP 130/81
== END 2024-03-11 00:34 | disposition home or self-care (01) ==
LOC: ER 20:53
PROVIDERS: Physician Assistant; Student in an Organized Health Care Education/Training Program
DX: R07.89 Other chest pain (principal); E03.9 Hypothyroidism, unspecified; E78.00 Pure hypercholesterolemia, unspecified; I10 Essential (primary) hypertension; I25.2 Old myocardial infarction; Z87.19 Personal history of other diseases of the digestive system; Z79.82 Long term (current) use of aspirin; Z79.899 Other long term (current) drug therapy; Z88.0 Allergy status to penicillin; Z88.1 Allergy status to other antibiotic agents; Z88.5 Allergy status to narcotic agent; Z88.8 Allergy status to other drugs, medicaments and biological substances
CPT/HCPCS: 0241U; 71046; 71260; 74177; 80053; 81001; 83690; 83735; 84484; 85025; 93005; 93010; 96374; 96375; 99284-25; A9270; J2270; J2405; Q9967

== ENCOUNTER → 2024-05-03 | Outpatient (CLI) | payer OTHER ==
[~2024-05-03] MED LIST changes: +LIDO700A20 TOP; +Robaxin750 MG PO
[2024-05-03 10:14] LABS: Calcium, Urine <5.0 mg/dL (< 17.5); Calcium, Urine Calculation Unable to Calculate mg/24hrs (42.0-353.0)
[2024-05-03 11:32] LABS: Creatinine Urine 28.5 mg/dL (27.00-270.00)
== END | disposition home or self-care (01) ==
LOC: LAB SHORT 07:50 → LAB 07:50
PROVIDERS: Internal Medicine Endocrinology, Diabetes & Metabolism
DX: M81.0 Age-related osteoporosis without current pathological fracture (principal)
CPT/HCPCS: 81050; 82340; 82570

== ENCOUNTER 2024-07-05 01:12 | Day surgery (SDC) | payer OTHER ==
[2024-07-05] MEDS ORDERED: ZOLEDRONIC ACID/MANNITOL-WATER 100 ML IV SCH (06:00)
[2024-07-05 07:41] VITALS: BP 159/75
[2024-07-05] MEDS ORDERED: AMLO5 PO (07:54)
[2024-07-05] MEDS ORDERED: Vitamin D1000 UNI1 (07:56)
[2024-07-05] MEDS ORDERED: CALCIUM CIT 311 EAC7 PO (07:56)
[2024-07-05 08:19] VITALS: BP 131/76
== END 2024-07-05 08:21 | disposition home or self-care (01) ==
LOC: ATC 01:12
DX: M81.0 Age-related osteoporosis without current pathological fracture (principal); E03.9 Hypothyroidism, unspecified; E11.42 Type 2 diabetes mellitus with diabetic polyneuropathy; I25.10 Atherosclerotic heart disease of native coronary artery without angina pectoris; K21.9 Gastro-esophageal reflux disease without esophagitis; I11.0 Hypertensive heart disease with heart failure; I50.32 Chronic diastolic (congestive) heart failure; Z88.0 Allergy status to penicillin; Z88.8 Allergy status to other drugs, medicaments and biological substances; Z88.5 Allergy status to narcotic agent
CPT/HCPCS: 96374; J3489

== ENCOUNTER → 2024-07-10 | Outpatient (CLI) | payer OTHER ==
[~2024-07-10] MED LIST changes: +CALCIUM CIT 311 EAC7 PO; +Vitamin D1000 UNI1
[2024-07-10 11:40] LABS: BASOPHILS ABSOLUTE AUTO 0.01 K/mm3 (0.00-0.23); BASOPHILS PERCENT AUTO 0 % (0-2); EOSINOPHILS ABSOLUTE AUTO 0.03 K/mm3 (0.00-0.68); EOSINOPHILS PERCENT AUTO 1 % (0-6); Hematocrit 39.8 % (33.0-51.0); Hemoglobin 13.2 g/dL (11.5-16.0); IMMATURE GRAN ABSOLUTE AUTO 0.01 K/mm3 (0.00-0.10); IMMATURE GRAN PERCENT AUTO 0 % (0-1); LYMPHOCYTES ABSOLUTE AUTO 1.69 K/mm3 (0.84-5.20); LYMPHOCYTES PERCENT AUTO 34 % (21-46); MONOCYTES ABSOLUTE AUTO 0.35 K/mm3 (0.16-1.47); MONOCYTES PERCENT AUTO 7 % (4-13); Mean Corpuscular HGB 28.9 pg (26.0-34.0); Mean Corpuscular HGB Conc 33.2 g/dL (31.5-36.5); Mean Corpuscular Volume 87 fL (80-100); Mean Platelet Volume 9.6 fL (9.1-12.4); NEUTROPHILS ABSOLUTE AUTO 2.96 K/mm3 (1.96-9.15); NEUTROPHILS PERCENT AUTO 59 % (41-73); Platelet Count 174 K/mm3 (150-400); RDW Coefficient Variation 13.2 % (11.7-14.2); RDW Standard Deviation 42.1 fL (35.1-46.3); Red Blood Cell Count 4.56 M/mm3 (3.80-5.20); White Blood Cell Count 5.05 K/mm3 (4.00-11.30)
[2024-07-10 11:59] LABS: Bun/Creatinine Ratio 39.7 (12.0-20.0); Calcium, Blood 9.1 mg/dL (8.5-10.1); Creatinine, Blood 0.68 mg/dL (0.40-1.00); Potassium, Blood 4.2 mmol/L (3.5-5.5); Uric Acid, Blood 3.2 mg/dL (2.6-6.0)
== END ==
LOC: LAB 11:36 → LAB SHORT 11:36
PROVIDERS: Chiropractor
DX: M79.89 Other specified soft tissue disorders (principal)
CPT/HCPCS: 80048; 84550; 85025